=== PATIENT | male | born 1960 | race African-American/Black ===

== ENCOUNTER 2019-12-22 18:40 | Emergency (ER) | payer OTHER ==
[~2019-12-22] VITALS: Ht 185.4 cm; Wt 81.7 kg
[2019-12-22] MEDS ORDERED: DOXYCYCLINE 10100 MG PO (20:23)
[2019-12-22] MEDS ORDERED: TYLENOL WITH CO1 TA1 PO (20:23)
[2019-12-22] MEDS ORDERED: CENTANY30 GM TOP (20:23)
[2019-12-22 21:01] VITALS: BP 133/84
== END 2019-12-22 21:02 | disposition home or self-care (01) ==
LOC: M.ERS 18:40
DX: S01.04XA Puncture wound with foreign body of scalp, initial encounter (principal); Z88.6 Allergy status to analgesic agent; X58.XXXA Exposure to other specified factors, initial encounter; Y93.89 Activity, other specified; Y92.89 Other specified places as the place of occurrence of the external cause; Y99.8 Other external cause status